=== PATIENT | female | born 1990 | race Caucasian/White ===

== ENCOUNTER 2016-06-08 07:40 | Emergency (ER) ==
[2016-06-08] MEDS ORDERED: NS 1,000 ML IV ONE (08:29)
[2016-06-08] MEDS ORDERED: ZOFRAN IV ONE (08:29)
[2016-06-08 08:31] LABS: MANUAL DIFF NEEDED? NO
[2016-06-08 08:42] LABS: BASO% 0.5 % (0.0-0.8); EOS# 0.11 X1000 (0.0-0.7); EOS% 1.5 % (0.0-10.0); HEMATOCRIT 40.5 % (37.0-47.0); HEMOGLOBIN 14.1 g/dL (12.0-16.0); LYMPH# 2.98 X1000 (1.2-3.4); LYMPH% 40.9 % (20.5-51.1); MCHC 34.8 g/dL (33-37); MONO# 0.56 X1000 (0.11-0.59); MONO% 7.7 % (1.7-9.3); MPV 12.5 FL (7.4-10.4); NEUT% 49.4 % (42.2-75.2); PLT 193 X1000 (130-400)
[2016-06-08 08:56] LABS: AGAP 14; ALKALINE PHOSPHATASE 63 U/L (32-104); AMYLASE 56 U/L (20-200); BUN 17 mg/dL (8-22); CALCIUM 9.7 mg/dL (8.8-10.2); CHLORIDE 101 mmol/L (98-107); COSMO 282; GOT 13 U/L (10-30); GPT 15 U/L (10-36); LIPASE 32 U/L (13-60); POTASSIUM 3.8 mmol/L (3.5-5.1); SODIUM 141 mmol/L (136-145); TCO2 26 mmol/L (25-35); TOTAL BILIRUBIN 0.53 mg/dL (0.20-1.00)
[2016-06-08 08:58] LABS: URINE CULTURE NEEDED? NO; URINE MICRO REVIEW NEEDED? NO; URINE SOURCE CLEAN CATCH
[2016-06-08 09:14] LABS: BILIRUBIN URINE NEGATIVE (NEGATIVE); BLOOD URINE NEGATIVE (NEGATIVE); COLOR YELLOW; GLUCOSE URINE NEGATIVE (NEGATIVE); LEUKOCYTES URINE NEGATIVE (NEGATIVE); NITRITE URINE NEGATIVE (NEGATIVE); PH URINE 6.5; PROTEIN URINE TRACE mg/dL (NEGATIVE); SP GRAVITY URINE 1.031; TURBIDITY URINE CLEAR (CLEAR); UROBILINOGEN URINE NORMAL (NORMAL)
[2016-06-08 09:16] LABS: UR EPITHELIAL CELLS <10 /HPF (<10); URINE BACTERIA NEGATIVE /HPF; URINE RBC <10 /HPF (<10); URINE WBC <10 /HPF (<10)
--- NOTE | 2016-06-08 09:49 | PROVIDER DOCUMENTATION ---
HPI-Abdominal Pain/GI Problem - General Chief Complaint: Abdominal Pain Stated Complaint: LOWER RT SIDE/BACK PAIN,LOOSE STOOLS,FIGUEROA Time Seen by Provider: 06/08/16 07:49 Source: patient Allergies/Adverse Reactions: Patient Allergies Allergy/AdvReac Type Severity Reaction Status Date / Time No Known Allergies Allergy Verified 06/08/16 08:12 Home Medications: Home Medication List Medication Instructions Recorded Confirmed Last Taken Type Dicyclomine [Bentyl] 10 mg PO TID AC #30 capsule 06/08/16 Unknown Rx Promethazine [Phenergan] 25 mg PO Q6H PRN PRN #20 tablet 06/08/16 Unknown Rx - History of Present Illness-ABD Nature of Presenting Problems: 25 y/o WF c/o RLQ pain that awoke her from sleep, radiates tot he right flank, starting at approx 0230 today. Associated with nausea and 7 episodes of vomiting. Has had orange tinted stools now for a few months, supposed to have colonoscopy next week due to that and her grandmother having early onset colon cancer. Denies previous bowel surgeries. Pain is stabbing, worse with movements. Denies known injury. Having mild dysuria, intermittently over the past couple days, denies vaginal discharge. Denies fevers or chills. Took 4 mg Zofran at approx 0300 today and 2000 mg tylenol Abdominal Pain Onset Location: reports: RLQ Pain Radiation: reports: flank Quality of Pain: reports: stabbing Severity in ED: reports: moderate Onset/Duration: reports: 4-6 hours ago Timing: reports: still present Review of Systems - Adult - REVIEW OF SYSTEMS - ADULT Constitutional: reports: see HPI. denies: chills, fever, fatique Eyes: reports: no symptoms reported Ears, Nose, Mouth & Throat: reports: no symptoms reported. denies: ear pain, nose pain, throat pain Cardiovascular: reports: no symptoms reported. denies: chest pain Respiratory: reports: no symptoms reported. denies: cough, shortness of breath , wheezing Gastrointestinal: reports: see HPI, abdominal pain, diarrhea, nausea, poor appetite, vomiting Genitourinary: reports: see HPI, dysuria, flank pain. denies: frequency, incontinence Musculoskeletal: reports: no symptoms reported. denies: bone pain, back pain, muscle aches Integumentary: reports: no symptoms reported. denies: rash Neurological: reports: no symptoms reported. denies: headache/migraines Psychiatric: reports: no symptoms reported Endocrine: reports: no symptoms reported Hematologic/Lymphatic: reports: no symptoms reported Allergic/Immunologic: reports: no symptoms reported All Other Systems: Reviewed and Negative Past History - Adult - PAST MEDICAL HISTORY-ADULT Review of Records: reports: Old Records Reviewed, Nursing Assessment Review, Medications Reviewed Major Childhood Illnesses: reports: denies history Cardiovascular: reports: denies history Respiratory: reports: denies history Gastrointestinal: reports: denies history Obstetrical/Gynecological: reports: denies history Genitourinary: reports: denies history Musculoskeletal: reports: denies history Neurological: reports: denies history Endocrine/Immune: reports: denies history Other Conditions: reports: denies history - PRIOR SURGERIES/PROCEDURES Surgical/Procedure History: reports: reviewed, not pertinent - IMMUNIZATION STATUS Childhood Immunizations: See Nurse Assessment Flu Vaccine: See Nurse Assessment - FAMILY HISTORY Family History: cancer (early onset colon cancer) - SOCIAL HISTORY Smoking: denies, non-smoker Substance Use: none/never Alcohol Use Frequency: occasionally Physical Exam-General - PHYSICAL EXAM-ADULT Initial Vital Signs Reviewed: Yes - CONSTITUTIONAL General Appearance: appears well, alert, mild distress - EYES Eyes: PERRL/EOMI, pink conjunctivae - HEAD, EARS, NOSE, MOUTH & THROAT HENMT: normocephalic/atraumatic, moist mucous membranes - NECK Neck: supple, normal inspection - RESPIRATORY Respiratory: chest non-tender, lungs clear, normal breath sounds, no pleuratic chest pain, no respiratory distress, no accessory muscle use. negative: respiratory distress, decreased breath sounds, accessory muscle use, crackles, rales, rhonchi, wheezing - CARDIOVASCULAR Cardiovascular: normal peripheral pulses, regular rate, rhythm - GASTROINTESTINAL (ABDOMEN) Abdominal Exam: normal bowel sounds, soft, no organomegaly, no pulsatile mass, tenderness (RLQ), McBurney's point tenderness, obturator sign, psoas - MUSCULOSKELETAL Back Exam: no CVA tenderness Extremity: normal gait - SKIN Integumentary: normal color, normal turgor, warm/dry - NEUROLOGIC Neurologic: grossly normal, no motor/sensory deficits - PSYCHIATRIC Psych/Mental Status: normal mood/affect, normal thought content, normal thought process, oriented x 3 Progress - PLAN OF CARE/RESULTS Progress/Plan/Lab Results: Vital Signs Temp Pulse Resp BP Pulse Ox 06/08/16 07:48 98.2 F 82 16 114/85 100 No Known Allergies Allergy (Verified 06/08/16 08:12) No Home Medications 06/08/16 Laboratory 06/08/16 06/08/16 06/08/16 08:53 08:53 08:15 WBC 7.29 RBC 4.40 Hgb 14.1 Hct 40.5 MCV 92.0 MCH 32.0 H MCHC 34.8 RDW Std Deviation 12.1 Plt Count 193 MPV 12.5 H Immature Gran % (Auto) 0.0 Neut % (Auto) 49.4 Lymph % (Auto) 40.9 Emmons % (Auto) 7.7 Eos % (Auto) 1.5 Baso % (Auto) 0.5 Immature Gran # (Auto) 0.00 Neut # (Auto) 3.60 Lymph # (Auto) 2.98 Emmons # (Auto) 0.56 Eos # (Auto) 0.11 Baso # (Auto) 0.04 Sodium Potassium Chloride Carbon Dioxide Anion Gap BUN Creatinine Estimated GFR/1.73 m2 BUN/Creatinine Ratio Glucose Calculated Osmolality Calcium Total Bilirubin AST ALT Alkaline Phosphatase Total Protein Albumin Globulin Albumin/Globulin Ratio Amylase Lipase Urine Source CLEAN CATCH Urine Color YELLOW Urine Turbidity CLEAR Urine pH 6.5 Ur Specific Prosser 1.031 Urine Protein TRACE A Ur Glucose (Stick) NEGATIVE Ur Ketones (Stick) 10 A Urine Blood NEGATIVE Urine Nitrite NEGATIVE Urine Bilirubin NEGATIVE Urobilinogen Dipstick NORMAL Urine Leukocytes NEGATIVE Urine WBC (Auto) <10 Urine RBC (Auto) <10 U Epithel Cells (Auto) <10 Urine Bacteria (Auto) NEGATIVE Urine Test NEGATIVE 06/08/16 08:15 WBC RBC Hgb Hct MCV MCH MCHC RDW Std Deviation Plt Count MPV Immature Gran % (Auto) Neut % (Auto) Lymph % (Auto) Emmons % (Auto) Eos % (Auto) Baso % (Auto) Immature Gran # (Auto) Neut # (Auto) Lymph # (Auto) Emmons # (Auto) Eos # (Auto) Baso # (Auto) Sodium 141 Potassium 3.8 Chloride 101 Carbon Dioxide 26 Anion Gap 14 BUN 17 Creatinine 0.7 Estimated GFR/1.73 m2 > 60 BUN/Creatinine Ratio 24 Glucose 90 Calculated Osmolality 282 Calcium 9.7 Total Bilirubin 0.53 AST 13 ALT 15 Alkaline Phosphatase 63 Total Protein 8.0 Albumin 5.0 Globulin 3.0 Albumin/Globulin Ratio 1.7 Amylase 56 Lipase 32 Urine Source Urine Color Urine Turbidity Urine pH Ur Specific Prosser Urine Protein Ur Glucose (Stick) Ur Ketones (Stick) Urine Blood Urine Nitrite Urine Bilirubin Urobilinogen Dipstick Urine Leukocytes Urine WBC (Auto) Urine RBC (Auto) U Epithel Cells (Auto) Urine Bacteria (Auto) Urine Test Orders Category Date Time Status Saline Loc NOW Care 06/08/16 08:[address] ABD/PELVIS W/ IV CONT ONLY [CT] Stat Exams 06/08/16 08:29 Taken AMYLASE [CHEM] Stat Lab 06/08/16 08:15 Completed CBC WITH ELECTRONIC DIFF [HEME] Stat Lab 06/08/16 08:15 Completed COMPREHENSIVE METABOLIC PANEL [CHEM] Stat Lab 06/08/16 08:15 Completed LIPASE [CHEM] Stat Lab 06/08/16 08:15 Completed TEST-URINE [PREG] Stat Lab 06/08/16 08:53 Completed UA NIMS W/REFLEX CULT [URINALYSIS] Stat Lab 06/08/16 08:53 Completed 0.9% Sodium Chloride Inj [Ns] 1,000 ml Med 06/08/16 08:29 Discontinued IV 999 mls/hr Ketorolac [Toradol] Med 06/08/16 10:32 Discontinued 30 mg IV NOW ONE Morphine Med 06/08/16 09:50 Discontinued 4 mg IV NOW ONE Ondansetron [Zofran] Med 06/08/16 08:29 Discontinued 4 mg IV NOW ONE - REASSESSMENT Reassessment #1 Time Reassessed: 10:33 (patient refused morphine, requested toradol) Status: unchanged - CT/MRI 1 CT Study: Abdomen, Pelvis Impression: Abnormal (Normal appendix. A few small nonspecific small bowel air fluid levels, which can be related to gastroenteritis. No obstruction. NAP otherwise Dr. Hernandez, radiology) Departure - Departure Time of Disposition Order: 10:37 DIAGNOSIS: Gastroenteritis Disposition: HOME 01 Certified Medical Emergency: Emergent Condition: Stable Additional Instructions: Follow up with your GI doctor as planned. ED Follow Up Instructions: You have been treated by a care provider in the Emergency Department. These instructions are being provided to you so you can have an understanding of how to care for yourself upon discharge. Upon discharge from the Emergency Department, you are responsible for making arrangements for follow-up care by a physician of your choice. Take all prescribed medications as directed. Return to the Emergency Department immediately for any new or worsening symptoms. You may call the Physician Referral phone number at [phone] to obtain a list of Physicians who are taking new patients. Prescriptions: Dicyclomine [Bentyl] 10 mg PO TID AC #30 capsule Promethazine [Phenergan] 25 mg PO Q6H PRN PRN #20 tablet PRN Reason: Nausea Attestation - Physician/ ZARIA Attestation Patient care was provided by Advanced Practice Provider:: Yes Advanced Practice Provider:: Elizabeth Hartmann Advanced Practice Provider documentation review:: The Mid-level provider documentation, treatment plan and medical decision making was reviewed by the physician who agrees with all treatment and medical decision making by the MLP.
[2016-06-08] MEDS ORDERED: MORPHINE IV ONE (09:50)
[2016-06-08] MEDS ORDERED: TORADOL IV ONE (10:32)
[2016-06-08 10:54] VITALS: BP 102/70
--- NOTE | 2016-06-08 11:20 | Diag Imaging Result Document ---
PROCEDURE NAME: CT ABD/PELVIS W/ IV CONT ONLY - 06/08/2016 CT ABDOMEN AND PELVIS WITH IV CONTRAST: COMPARISON: None available. FINDINGS: The appendix is normal. The gallbladder is unremarkable. There is a tiny left renal cyst. The kidneys are grossly unremarkable, otherwise. The appendix is normal. No discrete adnexal masses are appreciated. There is a fair amount of stool in the colon suggesting possible mild constipation. There are a few small bowel air fluid levels with no significant distention. These are nonspecific and probably represent ileus, perhaps related to viral gastroenteritis. No focal inflammatory change or free abdominal gas is identified. There is no significant free fluid. The remainder of the solid viscera of the abdomen and pelvis, and the remainder of the GI tract is essentially unremarkable. IMPRESSION: A few nonspecific small bowel air fluid levels, with no evidence of obstruction. Please see above discussion.
== END 2016-06-08 11:09 | disposition home or self-care (01) ==
LOC: ED 07:40
DX: K52.9 Noninfective gastroenteritis and colitis, unspecified (principal); R10.31 Right lower quadrant pain; R19.7 Diarrhea, unspecified; R11.2 Nausea with vomiting, unspecified; R30.0 Dysuria; R10.9 Unspecified abdominal pain; Z80.0 Family history of malignant neoplasm of digestive organs
CPT/HCPCS: 74177; 80053; 81001; 81025; 82150; 83690; 85025; J1885; J2270; J2405; J7030; Q9967